=== PATIENT | female | born 2000 | race Caucasian/White ===

== ENCOUNTER 2018-07-26 01:48 | Emergency (ER) | payer BC ==
[2018-07-26 01:55] VITALS: BP 134/92
--- NOTE | 2018-07-26 02:31 | EDPHY ---
H & P Stated Complaint: flu like symptoms Time Seen by Provider: 07/26/18 02:18 HPI/ROS: Chief Complaint: Fever, cough, sore throat, body aches HPI: 18-year-old woman presenting with 1 day of fever, cough, body aches, sore throat. Patient states she has a fever to 105 2 hr ago. She did take 2 Advil is feeling improved. Cough is nonproductive. No nausea or vomiting. She does have body aches. Has a mild sore throat but is able swallow. No neck pain. No neck stiffness. She does have a mild headache. ROS: 10 systems were reviewed and were negative except those elements noted in the HPI. PMH: Denies Social History: No smoking, occasional alcohol, no recreational drug use Family History: non-contributory Physical Exam: Gen: Awake, Alert, No Distress HEENT: Nose: no rhinorrhea Eyes: PERRLA, EOMI Mouth: Moist mucosa Neck: Supple, no JVD Chest: nontender, lungs clear to auscultation Heart: S1, S2 normal, no murmur Abd: Soft, non-tender, no guarding Back: no CVA tenderness, no midline tenderness Ext: no edema, non-tender Skin: no rash Neuro: CN II-XII intact, Sensation grossly intact, Strength 5/5 in bilateral upper and lower extremities - Personal History LMP (Females 10-55): Over 28 Days Ago Current Tetanus/Diphtheria Vaccine: Yes - Medical/Surgical History Hx Asthma: No Hx Chronic Respiratory Disease: No Hx Diabetes: No Hx Cardiac Disease: No Hx Renal Disease: No Hx Cirrhosis: No Hx Alcoholism: No Hx HIV/AIDS: No Hx Splenectomy or Spleen Trauma: No Other PMH: denies - Social History Smoking Status: Never smoked Constitutional: Initial Vital Signs Temperature (C) 38 C 07/26/18 01:54 Heart Rate 118 H 07/26/18 01:54 Respiratory Rate 18 07/26/18 01:54 Blood Pressure 134/92 H 07/26/18 01:54 O2 Sat (%) 96 07/26/18 01:54 O2 Delivery Mode Room Air Allergies/Adverse Reactions: No Known Allergies Allergy (Unverified 07/26/18 01:53) Home Medications: Medication Instructions Recorded Bcp 07/26/18 Doxycycline Hyclate 07/26/18 Medical Decision Making - Data Points Laboratory Results: 07/26/18 02:37 Nasal Influenza A PCR FLU A DETECTED H (NEGATIVE) Nasal Influenza B PCR NEGATIVE FOR FLU B (NEGATIVE) Departure - Departure Disposition: Home, Routine, Self-Care Clinical Impression: Influenza A Condition: Good Instructions: Influenza (ED) Additional Instructions: Alternate acetaminophen (1000 mg) with ibuprofen (400 mg) every 4 hours as needed for fevers, chills, aches or pain. Drink plenty of fluids. Follow up with [facility] in 4-5 days if symptoms are not improving. Referrals: IRMA RICHARD ,. [Clinic] - As per Instructions
== END 2018-07-26 03:45 | disposition home or self-care (01) ==
DX: J10.1 Influenza due to other identified influenza virus with other respiratory manifestations (principal)

== ENCOUNTER → 2018-08-30 | Outpatient (CLI) | payer BC | LOC: FIMAGING 16:45 | PROVIDERS: ATTEND Obstetrics & Gynecology | DX: R10.2 Pelvic and perineal pain (principal) ==